=== PATIENT | female | born 1995 | race Caucasian/White ===

== ENCOUNTER 2021-01-03 08:00 | Outpatient (RCR) | payer BC, SELFPAY ==
[2021-01-03] MEDS: RHO(D) IMMUNE GLOBULIN 300 MCG/2 ML SYRINGE IM (11:32)
== END 2021-04-01 23:59 | disposition home or self-care (01) ==
LOC: ANHLAB 08:00
PROVIDERS: PCP Obstetrics & Gynecology; Visit Provider Obstetrics & Gynecology
DX: Z29.13 Encounter for prophylactic Rho(D) immune globulin (principal); O36.0190 Maternal care for anti-D [Rh] antibodies, unspecified trimester, not applicable or unspecified; Z3A.00 Weeks of gestation of pregnancy not specified
CPT/HCPCS: 36415; 85461; 90384; 96372; J2790

== ENCOUNTER 2021-03-15 11:37 | Observation (INO) | payer BC, SELFPAY ==
--- NOTE | 2021-03-15 11:37 | OBADM ---
This patient, Sharmin Shea, admitted to the OB room Labor/Delivery/Recovery 106 for observation. Patient/family oriented to hospital policies and general routines including ID bracelet, bed and alarms, visiting hours, pain management, procedures, bathroom and other care routines, personal items, smoking policy, room service/diet, and visiting hours. Patient/Family are encouraged to report perceived risks to care and to ask questions if they do not understand what they are told or what they should do.
[2021-03-15 12:03] VITALS: BP 107/66; PULSE 97
[2021-03-15 12:31] VITALS: BP 106/67; PULSE 89
[2021-03-15 13:01] VITALS: BP 111/73; PULSE 86
--- NOTE | 2021-03-24 12:53 | PM.OBTRLD ---
OB - Triage/Final Diagnosis Visit Information Comments/Additional reasons for admission: I have assessed the risk for this patient, Sharmin Shea, and determined that she would benefit from observation care. Final Diagnosis (1) Vaginal discharge during : Code(s): O26.899 - Other specified related conditions, unspecified trimester; N89.8 - Other specified noninflammatory disorders of vagina Status: Acute
== END 2021-03-15 13:15 | disposition home or self-care (01) ==
PROVIDERS: Admitting Provider Obstetrics & Gynecology; Visit Provider Obstetrics & Gynecology
DX: O26.893 Other specified pregnancy related conditions, third trimester (principal); N89.8 Other specified noninflammatory disorders of vagina; Z3A.38 38 weeks gestation of pregnancy
CPT/HCPCS: 84112; G0378; G0379

== ENCOUNTER 2021-03-18 07:02 | Inpatient (IN) | payer BC, SELFPAY ==
[2021-03-18] VITALS (92 sets, daily range): BP systolic 70–129; BP diastolic 43–81; PULSE 59–101; RESP 16–18; TEMP 36.6–37.1; O2SAT 95–100; BMI 29.9
--- NOTE | 2021-03-18 07:22 | WPDANESEPP ---
Anes - Eval Pre Procedure Date/Time: 03/18/21 07:22 Pre Op Diagnosis: iol Patient Data Age: 25 Gender: F Height: Weight: Allergies Allergy/AdvReac Type Severity Reaction Status Date / Time No Known Allergies Allergy Unverified 10/20/18 07:56 Home Medications Medication Instructions Recorded Confirmed Type ergocalciferol (vitamin D2) 1,250 mcg PO WEEKLY 02/21/21 02/21/21 History [Vitamin D2] prenat.vits,anthony,[id number] 1 tablet PO HS 02/21/21 02/21/21 History Patient hx anesthesia problems: none Family hx anesthesia problems: none PMFSH Family History Family History Father Pre-diabetes Sibling Pre-diabetes Mother Hypothyroidism Grandparent Diabetes mellitus Hypothyroidism Breast cancer in female Dementia Social History Social History Substance use: never Spiritual care concerns: No Exam Day of Procedure 03/18/21 07:22 Patient weight: obese Heart: regular rate and rhythm Lungs: normal air movement Airway: Mallampati scale class II Neurological: alert and oriented
--- NOTE | 2021-03-18 07:41 | LDADM ---
This patient, Sharmin Shea, was admitted to Labor/Delivery/Recovery 107 on 03/18/21 at 07:02. Plans for labor, pain management and were discussed with patient. Patient/family oriented to hospital policies and general routines including ID bracelet, bed and alarms, visiting hours, pain management, procedures, bathroom and other care routines, personal items, smoking policy, room service/diet and guest tray routines, security routines, and visiting hours. Patient/Family are encouraged to report perceived risks to care and to ask questions if they do not understand what they are told or what they should do. See OBIX for further documentation.
--- NOTE | 2021-03-18 07:41 | PM.IMHP ---
H&P: HPI History of Present Illness Date/Time: 03/18/21 07:41 25-year-old female at term for induction of labor she has good dates with early ultrasound. She had a previous 9lb baby and this is expected to be as big. Chief Complaint: Induction of labor at term Review of Systems Review of Systems: All systems reviewed & are unremarkable except as noted in HPI and below PMFSH Family History Family History Father Pre-diabetes Sibling Pre-diabetes Mother Hypothyroidism Grandparent Diabetes mellitus Hypothyroidism Breast cancer in female Dementia Social History Social History Substance use: never Spiritual care concerns: No Meds Home Medications and Allergies Home Medications Medication Instructions Recorded Confirmed Type ergocalciferol (vitamin D2) 1,250 mcg PO WEEKLY 02/21/21 02/21/21 History [Vitamin D2] prenat.vits,anthony,amy-yngx-uesew 1 tablet PO HS 02/21/21 02/21/21 History Allergies Allergy/AdvReac Type Severity Reaction Status Date / Time No Known Allergies Allergy Unverified 10/20/18 07:56 Exam Const: General: no acute distress Eyes: General: appearance normal, both eyes and all related structures Neck: Neck: supple and no JVD Thyroid: thyroid normal Resp: Effort & Inspection: normal respiratory effort Auscultation: clear to auscultation bilaterally Cardio: Rate: regular rate Rhythm: regular rhythm GI: Inspection: non-distended GI Palp: Yes Soft to palpation, No Tenderness to palpation present (GI) and No Guarding due to palpation present (GI) Auscultation: normal bowel sounds : External Female Exam: normal external appearance Speculum Exam - Vagina: normal appearance of the vagina Speculum Exam - Cervix: normal appearance of the cervix (2cm. There appears to be clear fluid present. FHTs reassuring) Skin: General skin exam: no rashes or lesions noted Extrem: General: normal to inspection and no edema Psych: Mental Status: mental status grossly normal Affect: normal affect Assessment and Plan Additional Plan Impression: Term induction of labor with expected large baby Plan: Medical induction of labor. Spontaneous vaginal delivery is expected. She has an epidural candidate
[2021-03-18 07:46] LABS: Basophils Percent Auto 0.3 % (0.2-1.2); Eosinophils Absolute Auto 0.1 K/mm3 (0-0.3); Eosinophils Percent Auto 0.6 % (0-4.4); Hematocrit 34.2 % (37.0-47.0); Lymphocytes Absolute Auto 2.81 K/mm3 (0.9-3.2); Lymphocytes Percent Auto 27.8 % (18.3-44.2); Mean Corpuscular HGB Conc 32.2 g/dl (32-36); Mean Corpuscular Hemoglobin 27.4 pg (26-34); Mean Corpuscular Volume 85.3 fl (80-100); Monocytes Absolute Auto 0.7 K/mm3 (0.1-0.6); Monocytes Percent Auto 6.4 % (2.6-8.5); Neutrophils Absolute Auto 6.4 K/mm3 (1.3-6.7); Neutrophils Percent Auto 63.9 % (45.5-73.1); Platelet Count Result 194 k/mm3 (150-375); Red Blood Count 4.01 M/mm3 (4.2-5.4); Red Cell Distribution Width 13.5 % (11.5-14.5); White Blood Count 10.1 K/mm3 (4.5-10.0)
[2021-03-18] MEDS: OXYTOCIN 30 UNITS/NS 500 ML 30 UNITS/500 ML BAG IV CONT (08:05)
[2021-03-18] MEDS: LACTATED RINGERS 1,000 ML 125 ML IV CONT ×2 (08:05→11:51)
[2021-03-18 11:24] LABS: Rapid Plasma Reagin Non-Reactive (NonReactive)
[2021-03-18] MEDS: ONDANSETRON INJ 4 MG/2 ML VIAL IV PUSH (13:09)
--- NOTE | 2021-03-18 16:22 | PM.OBPNLAB ---
Pain Control Date/time seen: 03/18/21 16:22 Pain control: tolerating well and epidural Pelvic Exam Dilation (cm): 4 Effacement (%): 100 Amniotic membrane status: Leaking Contractions Monitor mode: Internal
--- NOTE | 2021-03-18 18:41 | PM.OBPRVD ---
OB - Delivery Note Procedure Delivery date: 03/18/21 Procedure: mil Intrapartal events: None Induction method: AROM Delivery augmentation: pitocin Delivery monitor: external FHT Route of delivery: Episiotomy description: None Laceration Description: Perineal - 1st Degree Delivery repair: vicryl Specimen: No Quantitative Blood Loss (ml): 158 Anesthesia type: Epidural Disposition: floor Baby Date of : 03/18/21 Time of : 18:28 Weeks of gestation at delivery: 39 Weight (pounds): 10 Weight (ounces): 7 presentation: vertex position: Right Occiput Anterior Placenta delivery description: Spontaneous cord vessel description: 3 Vessels score one minute: 8 score five minutes: 9
[2021-03-18] MEDS: OXYTOCIN 30 UNITS/NS 500 ML 30 UNITS/500 ML BAG 125 UNITS IV CONT (18:54)
[2021-03-18] MEDS: IBUPROFEN 600 MG TABLET PO (21:31)
[2021-03-19] MEDS: ACETAMINOPHEN 325 MG TABLET 650 MG PO ×2 (02:47→21:32)
[2021-03-19] MEDS: IBUPROFEN 600 MG TABLET PO ×3 (03:04→17:02)
[2021-03-19 03:34] VITALS: BP 111/61; PULSE 73; RESP 16; TEMP 36.3
[2021-03-19 04:46] LABS: Hematocrit 29.8 % (37.0-47.0); Hemoglobin 9.5 g/dL (12.0-15.0)
--- NOTE | 2021-03-19 06:42 | PM.OBPNVD ---
OB - PN: Subj Subjective Date/time seen: 03/19/21 06:42 Patient comments: no complaints and pain well controlled baby status: doing well and nursing well OB - PN: Obj Data Labs CBC & Chem 7: 03/19/21 04:29 Labs: Laboratory Results - last 24 hr 03/18/21 03/18/21 03/18/21 07:36 07:36 07:36 WBC 10.1 H RBC 4.01 L Hgb 11.0 L Hct 34.2 L MCV 85.3 MCH 27.4 MCHC 32.2 RDW 13.5 Plt Count 194 MPV 9.0 Immature Gran % (Auto) 1.0 H Neut % (Auto) 63.9 Lymph % (Auto) 27.8 [place] % (Auto) 6.4 Eos % (Auto) 0.6 Baso % (Auto) 0.3 Lymph # (Auto) 2.81 [place] # (Auto) 0.7 H Eos # (Auto) 0.1 Baso # (Auto) 0.0 Abs Immat Gran (auto) 0.10 H Absolute Neuts (auto) 6.4 Absolute Nucleated RBC 0.0 Nucleated RBC % 0.0 RPR Non-reactive Blood Type A Negative Antibody Screen Positive Antibody Identification Inconclusive Antigen Identification TNP EUGENIA, IgG Interpret Not Performed EUGENIA, Poly Interpret Negative EUGENIA, Complement Interp Not Performed 03/19/21 04:29 WBC RBC Hgb 9.5 L Hct 29.8 L MCV MCH MCHC RDW Plt Count MPV Immature Gran % (Auto) Neut % (Auto) Lymph % (Auto) [place] % (Auto) Eos % (Auto) Baso % (Auto) Lymph # (Auto) [place] # (Auto) Eos # (Auto) Baso # (Auto) Abs Immat Gran (auto) Absolute Neuts (auto) Absolute Nucleated RBC Nucleated RBC % RPR Blood Type Antibody Screen Antibody Identification Antigen Identification EUGENIA, IgG Interpret EUGENIA, Poly Interpret EUGENIA, Complement Interp OB - PN A/P Plan day: 1 Plan: routine care Time Spent With Patient Time: Total time spent is greater than 50% in coordination of care (as documented) at patient's floor/unit and/or counseling patient: Time with patient: less than 15 minutes Review of Systems Review of Systems: All systems reviewed & are unremarkable except as noted in HPI and below Exam Const: General: no acute distress Eyes: General: appearance normal, both eyes and all related structures Neck: Neck: supple and no JVD Thyroid: thyroid normal Resp: Effort & Inspection: normal respiratory effort Auscultation: clear to auscultation bilaterally Cardio: Rate: regular rate Rhythm: regular rhythm GI: Inspection: non-distended GI Palp: Yes Soft to palpation, No Tenderness to palpation present (GI) and No Guarding due to palpation present (GI) Auscultation: normal bowel sounds : General: Yes bladder normal to palpation External Female Exam: normal external appearance Speculum Exam - Vagina: normal vaginal discharge and No vaginal bleeding Speculum Exam - Cervix: nontender Bimanual exam- vagina & uterus: bladder normal to palpation and No Cervical tenderness present OB/external & speculum: No vaginal bleeding Skin: General skin exam: no rashes or lesions noted Extrem: General: normal to inspection and no edema Psych: Mental Status: mental status grossly normal Affect: normal affect
[2021-03-19 07:50] VITALS: BP 103/58; PULSE 75; RESP 16; TEMP 36.8; O2SAT 96
--- NOTE | 2021-03-19 08:32 | WPDANLDPN2 ---
Anes-Prog Note L&D Date/Time: 03/19/21 08:32 Comfortable throughout: labor and delivery Neuraxial method: epidural Epidural/Spinal procedure site: clean & non-tender Neuro status: Neuro function grossly intact. Cardiovascular status: normal Respiratory status: normal Airway patency: baseline Mental status: baseline Post-Op hydration status: normal Vital Signs: Last Vital Signs Temp 97.4 F L 03/19/21 03:34 Pulse 73 03/19/21 03:34 Resp 16 03/19/21 03:34 BP 111/61 03/19/21 03:34 Pulse Ox 98 03/18/21 14:04 Pain score (VAS): 0/10 I/O: Intake & Output 03/18/21 03/19/21 03/19/21 23:59 07:59 15:59 Intake Total 1500 Output Total 158 Balance 1342 Post-procedural complaints: none Patient feedback: Patient satisfied with anesthetic care.
[2021-03-19] MEDS: POLYSACCHARIDE IRON COMPLEX 150 MG CAPSULE PO ×2 (08:55→17:02)
[2021-03-19] MEDS: DOCUSATE SODIUM 100 MG CAPSULE PO ×2 (08:55→17:02)
[2021-03-19] MEDS: MULTIVIT/MIN/PREN/FOL AC/IRON TABLET 1 TAB PO (08:55)
--- NOTE | 2021-03-19 09:50 | PC.NURSE ---
Mother called out for assist with feeding, reporting pain with feeding. Mother used a nipple shield with first child due to nipple discomfort, then switched to pumping and bottle feeding. keeps tongue pulled back and does not drop and cup. is able to freely thrust and flange both lips. Mother has broken skin on both nipples from possible shallow latch, redness noted bilat. Reviewed infant feeding cues, frequencies, duration of feedings, feeding elimination flow sheet, and signs of adequate intake. Demonstrated stimulation techniques to wake for feeding. Assisted with infant to breast. Reviewed positioning/alignment in cross cradle, holding breast in ?U? hold and guided asymmetrical latch on. Reviewed rational for each. Several attempts before infant able to latch correctly. Heavy asymmetrical latch to allow nipple deeply on tongue for comfortable latch. Infant nursed eagerly with chewy sucks and occasional steady draws with occasional swallowing noted, some pausing noted. Reviewed signs of a correct latch, effective nursing and suck swallow ratio. Suggested mother stimulate while feeding to increase stimulate, increase intake and to assist with maintaining deep latch. would slip to shallow latch causing tenderness. Demonstrated how to adjust latch more deeply while feeding if needed. Mother reports she can feel the difference in latch with less tenderness. Nipple care reviewed of lanolin after feedings, warm compresses as needed, gel pads provided and reviewed care and cleaning. Instructed mother to call out for RN assistance if she is unable to latch infant for feeding or she has discomfort with nursing. Instructed feeding should be initiated three hours from start of last feeding or if feeding cues are noted before. Mother voiced understanding of information shared.
[2021-03-19 12:00] VITALS: BP 98/57; PULSE 74; RESP 16; TEMP 36.5; O2SAT 97
--- NOTE | 2021-03-19 13:15 | PC.NURSE ---
Mother called out for assist with feeding. Mother wishes to attempt feeding using the nipple shield due to nipple discomfort. Mother would wishes to continue to supplement after feedings. keeps tongue pulled back and does not freely thrust forward. Skin is red and scabbed on both both nipples. Nipple care reviewed of lanolin after feedings, warm compresses as needed, gel pads provided and reviewed care and cleaning. Discussed nipple shield use and how shield may assist with latch. Initiated nipple shield due to unable to latch deeply. Reviewed nipple shield precautions and possible complications. Instructions given on application and cleaning of shield. Patient able to return demonstration on proper application of shield. Discussed the need to initiate pumping if infant continues to nurse with the shield. Patient verbalizes understanding. Reviewed infant feeding cues, frequencies, duration of feedings, feeding elimination flow sheet, and signs of adequate intake. Demonstrated stimulation techniques to wake infant for feeding. Assisted with infant to breast. Reviewed positioning/alignment in cross cradle, holding breast in ?U? hold and guided asymmetrical latch on. Reviewed rational for each. was able/unable to latch correctly. nursed sleepily/eagerly with With shield in place, able to latch correctly within a few attempts. Infant nursed eagerly with steady draws and occasional swallowing noted for bursts followed with long pausing. Reviewed signs of a correct latch, effective nursing and suck swallow ratio. Infant was able to maintain latch without discomfort to mother. Suggested mother stimulate while feeding to increase stimulate, increase intake and to assist with maintaining deep latch. Demonstrated how to adjust latch more deeply while feeding if needed. Demonstrated how to adjust latch more deeply if slips to shallow latch causing discomfort. Discussed the difference of effective vs ineffective feeding. Reviewed is latching with good burst of suckling, he is feeding consistently with adequate milk transfer at this time, mother chooses to supplement after . Need for pumping will be evaluated tomorrow or begin if is not feeding as required. Instructed mother to call out for RN assistance if she is unable to latch infant for feeding or she has discomfort with nursing. Instructed feeding should be initiated three hours from start of last feeding or if feeding cues are noted before. Mother voiced understanding of information shared.
[2021-03-19 17:00] VITALS: BP 114/72; PULSE 78; RESP 18; TEMP 36.7
[2021-03-19 20:00] VITALS: BP 104/58; PULSE 55; RESP 18; TEMP 36.7; O2SAT 99
[2021-03-19] MEDS: DIBUCAINE 1% OINTMENT 30 GM TUBE 1 APPLIC TOPICAL (21:35)
--- NOTE | 2021-03-20 07:33 | PM.DS ---
DS: Admitting Diagnosis Discharge Date Admitting Diagnosis Term with large for gestational age DS: Summary Hospital Course Hospital Course: The patient was admitted for induction of labor secondary to large to gestational age unfavorable cervix. She underwent spontaneous vaginal delivery of a 10lb 7oz male which was unremarkable. She used epidural anesthesia. Her course was unremarkable she was , ambulating, voiding, and generally without complaints Time Spent with Patient Time attestation: Total time spent providing and/or coordinating discharge services: Exam Const: General: no acute distress Eyes: General: appearance normal, both eyes and all related structures Neck: Neck: supple and no JVD Thyroid: thyroid normal Resp: Effort & Inspection: normal respiratory effort Auscultation: clear to auscultation bilaterally Cardio: Rate: regular rate Rhythm: regular rhythm GI: Inspection: non-distended GI Palp: Yes Soft to palpation, No Tenderness to palpation present (GI) and No Guarding due to palpation present (GI) Auscultation: normal bowel sounds : General: Yes bladder normal to palpation External Female Exam: normal external appearance Speculum Exam - Vagina: normal vaginal discharge and No vaginal bleeding Speculum Exam - Cervix: nontender Bimanual exam- vagina & uterus: bladder normal to palpation and No Cervical tenderness present OB/external & speculum: No vaginal bleeding Skin: General skin exam: no rashes or lesions noted Extrem: General: normal to inspection and no edema Psych: Mental Status: mental status grossly normal Affect: normal affect Discharge Plan Discharge Attending physician on discharge: Irineo Zamarripa Discharging Clinician: Irineo Zamarripa Patient Disposition: Home, Self-Care Activity: may shower, may drive after 2 weeks and pelvic rest Diet: heart healthy Patient Instructions: Antibiotic Form Stand Alone Forms: General Discharge Information Follow-up/Referrals: Irineo Zamarripa MD [Physician] - Discharge Medications: Continued prenat.vits,anthony,[id number] Tablet 1 tablet PO HS RF: 0 ergocalciferol (vitamin D2) [Vitamin D2] 1,250 mcg (50,000 unit) Capsule 1,250 mcg PO WEEKLY RF: 0 Date of admission: 03/18/21 07:02 Primary Care Provider: PHYSICIAN,PUBLIC TRANSIT SPECIALIST Admitting Provider: Irineo Zamarripa Attending physician on admission: Irineo Zamarripa Condition: Stable
--- NOTE | 2021-03-20 07:35 | PM.OBPNVD ---
OB - PN: Subj Subjective Date/time seen: 03/20/21 07:35 Patient comments: no complaints and pain well controlled baby status: doing well and nursing well OB - PN: Obj Data Labs CBC & Chem 7: 03/19/21 04:29 OB - PN A/P Plan day: 2 Plan: routine care, discharge home and follow up 6 weeks Time Spent With Patient Time: Total time spent is greater than 50% in coordination of care (as documented) at patient's floor/unit and/or counseling patient: Time with patient: less than 15 minutes Review of Systems Review of Systems: All systems reviewed & are unremarkable except as noted in HPI and below Exam Const: General: no acute distress Eyes: General: appearance normal, both eyes and all related structures Neck: Neck: supple and no JVD Thyroid: thyroid normal Resp: Effort & Inspection: normal respiratory effort Auscultation: clear to auscultation bilaterally Cardio: Rate: regular rate Rhythm: regular rhythm GI: Inspection: non-distended GI Palp: Yes Soft to palpation, No Tenderness to palpation present (GI) and No Guarding due to palpation present (GI) Auscultation: normal bowel sounds : General: Yes bladder normal to palpation External Female Exam: normal external appearance Speculum Exam - Vagina: normal vaginal discharge and No vaginal bleeding Speculum Exam - Cervix: nontender Bimanual exam- vagina & uterus: bladder normal to palpation and No Cervical tenderness present OB/external & speculum: No vaginal bleeding Skin: General skin exam: no rashes or lesions noted Extrem: General: normal to inspection and no edema Psych: Mental Status: mental status grossly normal Affect: normal affect
[2021-03-20 07:50] VITALS: BP 113/62; PULSE 65; RESP 16; TEMP 37.1; O2SAT 98
--- NOTE | 2021-03-20 08:55 | PC.NURSE ---
Patient viewed the discharge video Mother & Baby Care, The First Two Weeks . Patient was given the opportunity and encouraged to ask questions. Patient verbalized understanding of information shared and has been given the mother/baby guide for home reference.
[2021-03-20] MEDS: DOCUSATE SODIUM 100 MG CAPSULE PO (08:56)
[2021-03-20] MEDS: WITCH HAZEL 40 PADS 1 PAD TOPICAL (08:56)
[2021-03-20] MEDS: POLYSACCHARIDE IRON COMPLEX 150 MG CAPSULE PO (08:56)
[2021-03-20] MEDS: MULTIVIT/MIN/PREN/FOL AC/IRON TABLET 1 TAB PO (08:56)
[2021-03-20] MEDS: IBUPROFEN 600 MG TABLET PO (08:56)
--- NOTE | 2021-03-20 09:10 | PC.NURSE ---
Mother is able to independently latch with appropriate positioning/alignment using nipple shield. She denies any nipple discomfort, is feeding as required and waking to feed if needed. Infant has several effective feedings followed with supplementation in the past 24 hours, and is currently meeting outcomes for weight, output, jaundice and feeding frequencies. continues to be supplemented by mother's choice. Mother has her own double electric pump for home use. She is currently not pumping due to is eagerly feeding with nipple shield and mother has a history of oversupply. Discussed increasing supplementation as infant requires to satisfactions. Reviewed paced feeding and suggested to stop when is satisfied, as long as is having required output. With increased supplementation infant may not want to feed for 4 hours. Reviewed once mother?s milk is established and is effectively feeding, may have increased intake with nursing. If infant is effective feeding with long draws and frequent swallowing noted, may be ready to decrease/discontinue supplementation. Discussed nipple shield weaning techniques Reviewed transition to breast milk, signs of adequate intake, and engorgement/relief. Instructed to call ICP if intake/output less than required. Reviewed regular medications mother is taking. Information provided per Evelia. Reviewed community resources on the [facility] website and in the Mom/Baby guide. Information on outpatient services provided. Mother has no further questions at this time.
[2021-03-21 08:05] VITALS: BP 117/60; PULSE 71; RESP 16; TEMP 36.6; O2SAT 99
== END 2021-03-20 11:10 | disposition home or self-care (01) | DRG 807 ==
LOC: ANHLDR 07:05 → ANHOB2 21:38
PROVIDERS: Admitting Provider Obstetrics & Gynecology; Visit Provider Obstetrics & Gynecology
DX: O36.63X0 Maternal care for excessive fetal growth, third trimester, not applicable or unspecified (principal); Z37.0 Single live birth; O70.0 First degree perineal laceration during delivery; Z3A.39 39 weeks gestation of pregnancy
CPT/HCPCS: 36415; 85014; 85018; 85025; 86592; 86850; 86880; 86900; 86901; 86902; A9270; J2405; J2590; J2795; J7120

== ENCOUNTER 2023-02-04 10:30 | Outpatient (RCR) | payer BC, SELFPAY ==
[2023-02-05] MEDS: RHO(D) IMMUNE GLOBULIN 300 MCG/2 ML SYRINGE IM (14:32)
== END 2023-05-05 23:59 | disposition home or self-care (01) ==
LOC: ANHLAB 10:30
PROVIDERS: Visit Provider Obstetrics & Gynecology
DX: Z29.13 Encounter for prophylactic Rho(D) immune globulin (principal); O36.0990 Maternal care for other rhesus isoimmunization, unspecified trimester, not applicable or unspecified; Z3A.00 Weeks of gestation of pregnancy not specified
CPT/HCPCS: 36415; 85461; 86850; 86900; 86901; 90384; 96372; J2790

== ENCOUNTER 2023-04-16 22:39 | Outpatient (CLI) | payer BC, SELFPAY | END 2023-04-16 23:30 | disposition home or self-care (01) | LOC: ANHOBOP 23:24 | PROVIDERS: Visit Provider Obstetrics & Gynecology | DX: O42.90 Premature rupture of membranes, unspecified as to length of time between rupture and onset of labor, unspecified weeks of gestation (principal); Z3A.00 Weeks of gestation of pregnancy not specified | CPT/HCPCS: 59025 ==

== ENCOUNTER 2023-04-24 10:09 | Outpatient (RCR) | payer BC, SELFPAY ==
[2023-04-24 11:35] VITALS: BP 108/56; PULSE 80
== END 2023-05-12 11:32 | disposition home or self-care (01) ==
LOC: ANHOBOP 10:09
PROVIDERS: Visit Provider Obstetrics & Gynecology
DX: O36.8130 Decreased fetal movements, third trimester, not applicable or unspecified (principal); Z3A.40 40 weeks gestation of pregnancy
CPT/HCPCS: 59025

== ENCOUNTER 2023-04-25 09:46 | Inpatient (IN) | payer BC, SELFPAY ==
[2023-04-25] VITALS (182 sets, daily range): BP systolic 81–151; BP diastolic 21–106; PULSE 49–213; RESP 16; TEMP 36.5–37.2; O2SAT 85–100; BMI 29.9
--- NOTE | 2023-04-25 10:06 | LDADM ---
This patient, Sharmin Shea, was admitted to Labor/Delivery/Recovery 107 on 04/25/23 at 09:46. Plans for labor, pain management and were discussed with patient. Patient/family oriented to hospital policies and general routines including ID bracelet, bed and alarms, visiting hours, pain management, procedures, bathroom and other care routines, personal items, smoking policy, room service/diet and guest tray routines, security routines, and visiting hours. Patient/Family are encouraged to report perceived risks to care and to ask questions if they do not understand what they are told or what they should do. See OBIX for further documentation.
[2023-04-25 10:23] LABS: Basophils Percent Auto 0.3 % (0.2-1.2); Eosinophils Absolute Auto 0.1 K/mm3 (0-0.3); Eosinophils Percent Auto 0.5 % (0-4.4); Hematocrit 33.9 % (37.0-47.0); Hemoglobin 10.6 g/dL (12.0-15.0); Immature Granulocyte Absolute 0.08 K/mm3 (0.00-0.031); Immature Granulocyte Percent A 0.9 % (0-0.5); Lymphocytes Absolute Auto 2.33 K/mm3 (0.9-3.2); Lymphocytes Percent Auto 25.4 % (18.3-44.2); Mean Corpuscular HGB Conc 31.3 g/dl (32-36); Mean Corpuscular Hemoglobin 26.6 pg (26-34); Mean Corpuscular Volume 85.2 fl (80-100); Mean Platelet Volume 8.7 fl (7.4-10.4); Monocytes Absolute Auto 0.5 K/mm3 (0.1-0.6); Neutrophils Absolute Auto 6.2 K/mm3 (1.3-6.7); Neutrophils Percent Auto 67.9 % (45.5-73.1); Platelet Count Result 190 k/mm3 (150-375); Red Blood Count 3.98 M/mm3 (4.2-5.4); Red Cell Distribution Width 13.8 % (11.5-14.5); White Blood Count 9.2 K/mm3 (4.5-10.0)
[2023-04-25] MEDS: LACTATED RINGERS 1,000 ML 125 ML IV CONT ×3 (10:30→17:40)
[2023-04-25] MEDS: OXYTOCIN 30 UNITS/NS 500 ML 30 UNITS/500 ML BAG IV CONT (10:30)
--- NOTE | 2023-04-25 10:38 | P.HP_ITS ---
H&P: HPI History of Present Illness Date/Time: 04/25/23 10:38 Chief Complaint: Postdates Narrative: this is a 27-year-old 3 para 2 last menstrual period was in June of 2022. Her EDC is 04/22/2023, confirmed by level week ultrasound presenting at 40 and half weeks gestation for induction of labor. She has had 2 [id number] babies. This 1 is not expected to be large. She is negative for group B strep and she is Rh negative received RhoGAM at 28 weeks [facility] Family History Family History Father Pre-diabetes Sibling Pre-diabetes Mother Hypothyroidism Grandparent Diabetes mellitus Hypothyroidism Breast cancer in female Dementia Social History Social History Smoking status: Never smoker Substance use: never Lack of Transportation: No Lack of Food: Never True Current Housing: I Have Housing Concerned About Future Housing: No Difficulty Paying Gas/Electric Bills: No Difficulty Paying for Meds: No Currently Unemployed: No Education: Bachelor's Degree Difficulty w/ Childcare or Family Care: No Spiritual care concerns: No Meds Home Medications and Allergies Home Medications Medication Instructions Recorded Confirmed Type ergocalciferol (vitamin D2) 1,250 1,250 mcg PO WEEKLY 02/21/21 03/29/23 History mcg (50,000 unit) capsule (Vitamin D2) prenat.vits,anthony,yho-[id number]-aitqa 1 tablet PO HS 02/21/21 03/29/23 History Allergies Allergy/AdvReac Type Severity Reaction Status Date / Time No Known Allergies Allergy Verified 04/25/23 10:03 Vital Signs Vital Signs - 24 hr 04/25/23 10:02 04/25/23 10:16 04/25/23 10:31 Pulse Rate 91 97 85 Blood Pressure 100/58 L 106/60 101/58 L Oxygen Delivery 04/25/23 10:05 04/25/23 10:03 Pulse Rate 91 Blood Pressure 100/58 L Oxygen Delivery Room Air Exam Const: General: cooperative, healthy appearing and comfortable Nutritional Appearance: average body habitus Orientation/consciousness: oriented to person, oriented to place and oriented to time Resp: Effort & Inspection: normal respiratory effort Cardio: Rate: regular rate Rhythm: regular rhythm Heart sounds: S1 normal heart sound present and S2 normal heart sound present GI: Inspection: normal to inspection ( gravid soft uterus) : External Female Exam: normal external appearance Speculum Exam - Vagina: normal appearance of the vagina Speculum Exam - Cervix: normal appear ance of the cervix ( cervix 2/50/1. AROM clear. FHT is reassuring) H&P: Results Labs Labs: Short CBC 04/25/23 Range/Units 09:57 WBC 9.2 (4.5-10.0) K/mm3 Hgb 10.6 L (12.0-15.0) g/dL Hct 33.9 L (37.0-47.0) % Plt Count 190 (150-375) k/mm3 Assessment and Plan Assessment and plan (1) Post-dates : Code(s): O48.0 - Post-term Status: Acute Plan medical induction of labor. Spontaneous vaginal delivery is expected. She is an epidural candidate
[2023-04-25 11:21] LABS: HIV 1/2 Ab P24 Ag Result Negative (Negative)
--- NOTE | 2023-04-25 13:28 | WPDANESEPP ---
Anes - Eval Pre Procedure Procedure: labor epidural Date/Time: 04/25/23 13:28 Pre Op Diagnosis: Induction of Labor Patient Data Age: 27 Gender: F Height: 1.83 m Weight: 100 kg Last Vital Signs Temp 37.2 C 04/25/23 12:00 Pulse 112 H 04/25/23 13:17 BP 81/21 L 04/25/23 13:17 O2 Del Method Room Air 04/25/23 10:05 Allergies Allergy/AdvReac Type Severity Reaction Status Date / Time No Known Allergies Allergy Verified 04/25/23 10:03 Home Medications Medication Instructions Recorded Confirmed Type ergocalciferol (vitamin D2) 1,250 1,250 mcg PO WEEKLY 02/21/21 03/29/23 History mcg (50,000 unit) capsule (Vitamin D2) prenat.vits,anthony,[id number] 1 tablet PO HS 02/21/21 03/29/23 History Laboratory Tests 04/25/23 09:57 WBC 9.2 K/mm3 (4.5-10.0) RBC 3.98 L M/mm3 (4.2-5.4) Hgb 10.6 L g/dL (12.0-15.0) Hct 33.9 L % (37.0-47.0) MCV 85.2 fl (80-100) MCH 26.6 pg (26-34) MCHC 31.3 L g/dl (32-36) RDW 13.8 % (11.5-14.5) Plt Count 190 k/mm3 (150-375) MPV 8.7 fl (7.4-10.4) Immature Gran % (Auto) 0.9 H % (0-0.5) Neut % (Auto) 67.9 % (45.5-73.1) Lymph % (Auto) 25.4 % (18.3-44.2) [place] % (Auto) 5.0 % (2.6-8.5) Eos % (Auto) 0.5 % (0-4.4) Baso % (Auto) 0.3 % (0.2-1.2) Lymph # (Auto) 2.33 K/mm3 (0.9-3.2) [place] # (Auto) 0.5 K/mm3 (0.1-0.6) Eos # (Auto) 0.1 K/mm3 (0-0.3) Baso # (Auto) 0.0 K/mm3 (0.0-0.1) Abs Immat Gran (auto) 0.08 H K/mm3 (0.00-0.031) Absolute Neuts (auto) 6.2 K/mm3 (1.3-6.7) Absolute Nucleated RBC 0.0 K/mm3 (0.0-0.012) Nucleated RBC % 0.0 % (0.0-0.2) RPR Pending HIV 1&2 Ab/P24 Ag 4thGn Negative (Negative) Blood Type A Negative Antibody Screen Positive Antibody Identification Passive Due to RH Imm Glob Antigen Identification Not Reportable EUGENIA, IgG Interpret Not Performed EUGENIA, Poly Interpret Neg EUGENIA, Complement Interp Not Performed Patient hx anesthesia problems: none Family hx anesthesia problems: none Results Review: All pre-operative results and documents have been reviewed as part of the pre-operative evaluation. PENDING SALE TO [facility] Family History Family History Father Pre-diabetes Sibling Pre-diabetes Mother Hypothyroidism Grandparent Diabetes mellitus Hypothyroidism Breast cancer in female Dementia Social History Social History Smoking status: Never smoker Substance use: never Lack of Transportation: No Lack of Food: Never True Current Housing: I Have Housing Concerned About Future Housing: No Difficulty Paying Gas/Electric Bills: No Difficulty Paying for Meds: No Currently Unemployed: No Education: Bachelor's Degree Difficulty w/ Childcare or Family Care: No Spiritual care concerns: No Exam Day of Procedure 04/25/23 13:28 Patient weight: obese Heart: regular rate and rhythm Lungs: normal air movement Airway: Mallampati scale Neurological: alert and oriented
[2023-04-25] MEDS: PHENYLEPHRINE 1,000 MCG/10 ML SYRINGE 100 MCG IV PUSH ×2 (15:19→15:28)
--- NOTE | 2023-04-25 17:55 | PM.OBPNLAB ---
Pain Control Date/time seen: 04/25/23 17:55 Pain control: tolerating well and epidural Pelvic Exam Dilation (cm): 7 Effacement (%): 80 station: -2 Amniotic membrane status: Leaking Contractions Monitor mode: Internal
[2023-04-25] MEDS: ONDANSETRON INJ 4 MG/2 ML VIAL IV PUSH (19:04)
[2023-04-25] MEDS: OXYTOCIN 30 UNITS/NS 500 ML 30 UNITS/500 ML BAG 999 UNITS IV CONT (19:20)
--- NOTE | 2023-04-25 19:29 | PM.OBPRVD ---
OB - Delivery Note Procedure Delivery date: 04/25/23 Events: Elective Induction of Labor Induction method: AROM Delivery monitor: External FHT and Internal Uterine Route of delivery: Episiotomy description: None Laceration Description: Perineal - 1st Degree Delivery repair: vicryl Quantitative Blood Loss (ml): 60 Anesthesia type: Epidural Disposition: Floor [place] Baby Date of : 04/25/23 Time of : 19:16 Weeks of gestation at delivery: 40 gender: Female Weight (pounds): 9 Weight (ounces): 0 presentation: vertex position: Right Occiput Anterior Placenta delivery description: Spontaneous Cord Vessel Description: 3 Vessels score one minute: 7 score five minutes: 9
--- NOTE | 2023-04-25 19:34 | PM.DS ---
DS: Admitting Diagnosis Discharge Date 04/27/2023 Admitting Diagnosis Post date DS: Discharge Diagnosis Discharge Diagnosis (1) Post-dates : Code(s): O48.0 - Post-term Status: Acute DS: Summary Hospital Course Reason for hospitalization: patient was for induction labor secondary to postdates Hospital Course: hospital course. She remained afebrile. She was up voiding difficulty breast-feeding eating. Time Spent with Patient Time attestation: Total time spent providing and/or coordinating discharge services: DS: Data Data Completed and Pending Labs on day of discharge: Labs from last 24 hours 04/25/23 09:57 WBC 9.2 RBC 3.98 L Hgb 10.6 L Hct 33.9 L MCV 85.2 MCH 26.6 MCHC 31.3 L RDW 13.8 Plt Count 190 MPV 8.7 Immature Gran % (Auto) 0.9 H Neut % (Auto) 67.9 Lymph % (Auto) 25.4 [place] % (Auto) 5.0 Eos % (Auto) 0.5 Baso % (Auto) 0.3 Lymph # (Auto) 2.33 [place] # (Auto) 0.5 Eos # (Auto) 0.1 Baso # (Auto) 0.0 Abs Immat Gran (auto) 0.08 H Absolute Neuts (auto) 6.2 Absolute Nucleated RBC 0.0 Nucleated RBC % 0.0 RPR Pending HIV 1&2 Ab/P24 Ag 4thGn Negative Blood Type A Negative Antibody Screen Positive Antibody Identification Passive Due to RH Imm Glob Antigen Identification Not Reportable EUGENIA, IgG Interpret Not Performed EUGENIA, Poly Interpret Neg EUGENIA, Complement Interp Not Performed Discharge Plan Discharge Attending physician on discharge: Irineo Lovelace Discharging Clinician: Irineo Lovelace Patient Disposition: Home, Self-Care Activity: may shower, no straining and pelvic rest Diet: heart healthy Wound Care Instructions: follow printed instructions Patient Instructions: Antibiotic Form Stand Alone Forms: General Discharge Information Follow-up/Referrals: Irineo Lovelace MD [Physician] - Discharge Medications: Continued prenat.vits,anthony,[id number] Tablet 1 tablet PO HS ergocalciferol (vitamin D2) [Vitamin D2] 1,250 mcg (50,000 unit) Capsule 1,250 mcg PO WEEKLY Date of admission: 04/25/23 09:46 Primary Care Provider: 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
[2023-04-25] MEDS: OXYTOCIN 30 UNITS/NS 500 ML 30 UNITS/500 ML BAG 125 UNITS IV CONT (19:48)
[2023-04-25] MEDS: BENZOCAINE 20% AER SPR (*SP) 56 GM CAN 1 SPRAY TOPICAL (22:16)
[2023-04-25] MEDS: WITCH HAZEL 40 PADS 1 PAD TOPICAL (22:16)
[2023-04-25] MEDS: IBUPROFEN 600 MG TABLET PO (22:16)
--- NOTE | 2023-04-25 22:41 | OBPPTRN ---
Patient transferred to post room #290 via wheelchair. Support person present. Oriented to unit, room, information board, rooming in, admission packet and security measures. Patient verbalizes understanding.
[2023-04-26 04:45] VITALS: BP 93/56; PULSE 65; RESP 16; TEMP 37.1; O2SAT 97
[2023-04-26 05:05] LABS: Hematocrit 34.1 % (37.0-47.0); Hemoglobin 10.6 g/dL (12.0-15.0)
--- NOTE | 2023-04-26 07:06 | P.PNOB_ITS ---
OB - PN: Subj Subjective Date/time seen: 04/26/23 07:06 Patient comments: no complaints and pain well controlled baby status: doing well OB - PN: Obj Data Labs 04/26/23 04:32 Labs: Laboratory Results - last 24 hr 04/25/23 04/26/23 09:57 04:32 WBC 9.2 RBC 3.98 L Hgb 10.6 L 10.6 L Hct 33.9 L 34.1 L MCV 85.2 MCH 26.6 MCHC 31.3 L RDW 13.8 Plt Count 190 MPV 8.7 Immature Gran % (Auto) 0.9 H Neut % (Auto) 67.9 Lymph % (Auto) 25.4 [place] % (Auto) 5.0 Eos % (Auto) 0.5 Baso % (Auto) 0.3 Lymph # (Auto) 2.33 [place] # (Auto) 0.5 Eos # (Auto) 0.1 Baso # (Auto) 0.0 Abs Immat Gran (auto) 0.08 H Absolute Neuts (auto) 6.2 Absolute Nucleated RBC 0.0 Nucleated RBC % 0.0 HIV 1&2 Ab/P24 Ag 4thGn Negative Blood Type A Negative Antibody Screen Positive Antibody Identification Passive Due to RH Imm Glob Antigen Identification Not Reportable EUGENIA, IgG Interpret Not Performed EUGENIA, Poly Interpret Neg EUGENIA, Complement Interp Not Performed OB - PN A/P Plan day: 1 Plan: routine care Time Spent With Patient Time: Total time spent is greater than 50% in coordination of care (as documented) at patient's floor/unit and/or counseling patient: Time with patient: less than 15 minutes Exam Const: General: cooperative, healthy appearing and comfortable Nutritional Appearance: average body habitus Orientation/consciousness: oriented to person, oriented to place and oriented to time HENMT: Head: normal to inspection Resp: Effort & Inspection: normal respiratory effort Cardio: Rate: regular rate Rhythm: regular rhythm Heart sounds: S1 normal heart sound present and S2 normal heart sound present GI: Inspection: normal to inspection (fundus firm)
[2023-04-26] MEDS: MULTIVIT/MIN/PREN/FOL AC/IRON TABLET 1 TAB PO (07:27)
[2023-04-26] MEDS: DOCUSATE SODIUM 100 MG CAPSULE PO ×2 (07:27→15:55)
[2023-04-26] MEDS: IBUPROFEN 600 MG TABLET PO ×3 (07:27→22:37)
[2023-04-26 07:55] VITALS: BP 116/65; PULSE 74; RESP 16; TEMP 36.4; O2SAT 98
[2023-04-26 12:35] VITALS: BP 104/51; PULSE 74; RESP 16; TEMP 36.6; O2SAT 98
[2023-04-26] MEDS: ACETAMINOPHEN 325 MG TABLET 650 MG PO ×2 (13:01→22:38)
--- NOTE | 2023-04-26 13:21 | PC.NURSE ---
[id number] Introductions were made, then consulted with patient to assess needs related to . Mother led the conversation with her?plans to feed?her infant, the?experience so far and unsuccessful history with her first two children. Mother works well with her with encouragement and education. Encouraged understanding of the benefits of skin to skin (demonstrating unwrapping infant and placing upright on her chest), stimulating with massage touch, changing positions to encourage wakefulness, how to watch for early feeding cues, responsive feeding, feeding on demand (aiming for 8-12 times in 24 hours, about every 2-3 hours), milk production, building/maintaining a milk supply, duration of feeding, signs of adequate intake/output and how to record on the feeding sheet. Reviewed positioning and ear, shoulder, hip alignment, supporting the breast to facilitate a deep latch, asymmetrical latch (off-center), leading with the chin with a big, open, wide gape and body close to mother. Mother is able to independently latched to the right and left breast in cross cradle position. Cautioned mother on visualizing where the infants tongue is at prior to . At times infant is crying with a big open mouth but the tongue is back and up to the roof of the mouth. is able to extend the tongue past the gumline, yet before latching at times infant holds the tongue back away from the gumline and posterior tongue raised up. latches but without strong negative suction. We are able to remove from the breast without detaching with a finger. is on/off the breast and appears to not know how to pull the breast into the mouth. Mother's nipples are everted and soft. is being supplemented by mother's choice. Demonstrated paced bottle feeding. has no difficulties bottle feeding. Resources used to facilitate learning were used with the tool, mom and baby guide. Mother voiced understanding of skin to skin, stimulating with massage touch, responsive feedings, talking to to encourage if it has been 2 -2.5 hours since the start of the last , to call if infant does not latch, or if there is discomfort with . A suggestion was made to attempt to breastfeed and if there is a chomping on/off feeding experience, then practice both breast, then pace bottle feed and protect her milk supply with pumping. Encouraged [id number] and practicing when shows feeding cues and is quiet, alert and awake or there's REM. Resources provided for inpatient/outpatient with feeding sheet, name on the communication board and the mom/baby guide. Mother voiced understanding of information, demonstrated learning and will call if there is a request for assistance. Reported to the Primary RN.
--- NOTE | 2023-04-26 13:31 | PC.NURSE ---
[id number] Breast pump provided due to ineffective . Instructions given on cleaning, care, usage, that there should be no pain, pumping schedule for milk production, collection, and storage of human milk. Parents are encouraged to record pumping schedule on the feeding sheet. Patient was assessed for correct placement, flange size, to pump for comfort and nipple stretching/stimulation for adequate milk production every 3 hours (8 times in 24 hours) 1-2 times at night. Mother voiced understanding of the education shared along with mom and baby guide for additional resource information. Reported to the Primary RN.
[2023-04-26 14:26] LABS: Rapid Plasma Reagin Non-Reactive (NonReactive)
[2023-04-26 16:30] VITALS: BP 117/67; RESP 16; TEMP 36.7
[2023-04-26 16:50] VITALS: BP 117/56; PULSE 64
[2023-04-26] MEDS: WITCH HAZEL 40 PADS 1 PAD TOPICAL (19:45)
[2023-04-26 19:54] VITALS: BP 117/72; PULSE 66; RESP 18; TEMP 36.6; O2SAT 100
[2023-04-26] MEDS: DIBUCAINE 1% OINTMENT 30 GM TUBE 1 APPLIC TOPICAL (21:15)
--- NOTE | 2023-04-27 06:43 | PM.OBPNVD ---
OB - PN: Subj Subjective Date/time seen: 04/27/23 06:43 Patient comments: no complaints and pain well controlled baby status: doing well and nursing well OB - PN: Obj Data Labs 04/26/23 04:32 Labs: Laboratory Results - last 24 hr 04/25/23 09:57 RPR Non-reactive OB - PN A/P Plan day: 2 Plan: routine care, discharge home and follow up 6 weeks Time Spent With Patient Time: Total time spent is greater than 50% in coordination of care (as documented) at patient's floor/unit and/or counseling patient: Time with patient: less than 15 minutes Exam Const: General: cooperative, healthy appearing and comfortable Nutritional Appearance: average body habitus Orientation/consciousness: oriented to person, oriented to place and oriented to time Resp: Effort & Inspection: normal respiratory effort Cardio: Rate: regular rate Rhythm: regular rhythm Heart sounds: S1 normal heart sound present and S2 normal heart sound present GI: Inspection: normal to inspection
[2023-04-27 07:30] VITALS: BP 107/69; PULSE 63; RESP 16; TEMP 36.8; O2SAT 98
[2023-04-27] MEDS: IBUPROFEN 600 MG TABLET PO (09:12)
[2023-04-27] MEDS: MULTIVIT/MIN/PREN/FOL AC/IRON TABLET 1 TAB PO (09:12)
[2023-04-27] MEDS: DOCUSATE SODIUM 100 MG CAPSULE PO (09:12)
[2023-04-27 14:40] VITALS: BP 130/69; PULSE 82; RESP 16; TEMP 38.2; O2SAT 98
[2023-04-28 12:55] VITALS: BP 102/67; PULSE 78; RESP 18; TEMP 36.8; O2SAT 99
== END 2023-04-27 12:00 | disposition home or self-care (01) | DRG 807 ==
LOC: ANHLDR 19:37 → ANHOB2 22:54
PROVIDERS: Admitting Provider Obstetrics & Gynecology; Visit Provider Obstetrics & Gynecology
DX: O70.0 First degree perineal laceration during delivery (principal); Z37.0 Single live birth; Z3A.40 40 weeks gestation of pregnancy; Z67.91 Unspecified blood type, Rh negative
CPT/HCPCS: 36415; 85014; 85018; 85025; 86592; 86703; 86850; 86880; 86900; 86901; 86902; A9270; G0432; J2371; J2405; J2590; J2795; J7120